=== PATIENT | male | born 1950 | race Caucasian/White ===

== ENCOUNTER 2023-07-15 09:54 | Day surgery (SDC) | payer MEDICARE, OTHER, SELFPAY ==
--- NOTE | 2023-07-15 | PATH_ITS ---
[facility] Accession Number: [id number] No. of containers..03 Tissue . 01 Material submitted: . PART A: colon - DESCENDING POLYP PART B: colon - TRANSVERSE POLYP PART C: colon - TRANSVERSE POLYP #2 . 01 Diagnosis: A. Descending Colon, Polyp: Tubular adenoma. . B. Transverse Colon, Polyp: Tubular adenoma. . C. Transverse Colon, Polyp #2: Tubular adenoma. [facility] 07/20/2023 1416 Local . 01 Electronically signed: . Milla Sheldon MD, Pathologist NPI- [id number] . 01 Gross description: . Part A: DESCENDING POLYP: Received in formalin is multiple fragment(s) of rawls, soft tissue measuring 1.0 x 0.5 x 0.2 cm in aggregate submitted entirely in 1 cassette(s) Part B: TRANSVERSE POLYP: Received in formalin is multiple fragment(s) of rawls, soft tissue measuring 1.0 x 0.5 x 0.1 cm in aggregate submitted entirely in 1 cassette(s) Part C: TRANSVERSE POLYP #2: Received in formalin is 2 fragment(s) of rawls, soft tissue measuring 0.8 x 0.3 x 0.3 cm to 0.7 x 0.4 x 0.2 cm submitted entirely in 1 cassette(s) /AAY 07/17/2023 0150 Local . 01 Pathologist provided ICD-10: D12.4, D12.3 . 01 CPT . 419476, 417769, 517596 Specimen Comment: A courtesy copy of this report has been sent to [phone] Performed at: 01 [facility] [address] [place] [address] [address] [facility] [place], [place], [place] [id number] MD Mayank Sandhu MD Phone: [phone]
[2023-07-15 11:01] VITALS: BP 157/82; PULSE 54; RESP 16; TEMP 36.2; O2SAT 98; BMI 29.5
--- NOTE | 2023-07-15 11:09 | P.HP_ITS ---
History of Present Illness History of Present Illness Date Patient Seen: 07/15/23 Time Patient Seen: 11:09 Chief complaint: Screening Colonoscopy Narrative: Patrick is a 72-year-old man who has a history of colon polyps. He has been having colonoscopies about every 3 years but his last 1 was 4 years ago. He seems to always have some polyps. His father of colon cancer in his 60s. Takes Eliquis for atrial fibrillation but he has held it for the past several days. [facility] Family History (Updated 02/10/17 @ 00:00 by Conversion Provider) Brother Mental health problem Meds Home Medications and Allergies Home Medications Medication Instructions Recorded Confirmed Type CHOLECALCIFEROL (VITAMIN D) 2,000 iu PO Q DAY ##0 02/18/11 History omega 4-jpa-gib-fish oil 1,000 mg 3,000 mg PO BID ##0 11/19/11 07/15/23 History (120 mg-180 mg) capsule (Fish Oil) carvedilol 25 mg tablet (Coreg) 25 mg PO BID #180 tabs 03/25/17 07/15/23 Rx metformin 500 mg tablet 1,000 mg (2 x 500 mg) PO BIDCC 03/25/17 07/15/23 Rx (Glucophage) #360 tabs rivaroxaban 20 mg tablet (Xarelto) 20 mg PO QDAY #90 tabs 05/13/17 07/15/23 Rx atorvastatin 80 mg tablet (Lipitor) 80 mg PO HS #90 tabs 06/04/17 07/15/23 Rx Allergies Allergy/AdvReac Type Severity Reaction Status Date / Time niacin [NIACIN] Allergy Intermediate rash Verified 07/15/23 10:54 rosuvastatin [ROSUVASTATIN] Allergy Intermediate myalgia Verified 07/15/23 10:54 simvastatin [SIMVASTATIN] Allergy Intermediate myalgia Verified 07/15/23 10:54 lisinopril [LISINOPRIL] Allergy Mild rash Verified 07/15/23 10:54 Exam Const Orientation: alert and awake Resp Effort & Inspection: normal respiratory effort Assessment & Plan Assessment and plan (1) History of colonic polyps: Status: None Plan We reviewed the risks and benefits of colonoscopy and he would like to proceed.
[2023-07-15] MEDS: LACTATED RINGERS 1,000 ML 150 ML IV (11:15)
--- NOTE | 2023-07-15 12:51 | PM.OP.EC ---
Operative Date/Time/Diagnoses Date of procedure: 07/15/23 Time of procedure: 12:51 Pre-op diagnosis: History of polyps Post-op diagnosis: same Procedure & Clinicians Study performed: Colonoscopy Same procedure as scheduled: Yes Surgeon: Bairon Pat Procedure Notes Procedure in detail: Surgeon: Bairon Pat MD Anesthesia: Karla Raul DO Procedure: The patient was brought to the endoscopy suite, placed in left lateral decubitus position. The patient was connected to monitoring devices. A time-out was performed. Sedation was administered. Once the patient was adequately sedated, a digital rectal exam was performed and was normal. The scope was then inserted and advanced to the cecum where the appendiceal orifice was identified and photographed. The scope was then slowly withdrawn over greater than 6 minutes. The mucosa was thoroughly inspected. There was a 5 mm polyp in the transverse colon removed with a cold snare. There was a 1 cm polyp in the distal transverse colon removed with a cold snare. There was a 5 mm polyp in the descending colon removed with a cold snare. There was pandiverticulosis greatest in the left colon. The scope was retroflexed in the rectum. No other abnormalities were seen. The scope was straightened and removed. The patient was awakened and brought to recovery. Scope withdrawal time: 11 minutes Sedation time: 32 minutes EBL: 5 mL Findings: 3 polyps as detailed above, the largest was about 1 cm and pandiverticulosis Post-procedure Disposition: PACU
[2023-07-15 12:55] VITALS: BP 100/66; PULSE 63; RESP 18; TEMP 37.2; O2SAT 91
[2023-07-15 13:00] VITALS: BP 94/58; PULSE 62; RESP 11; TEMP 37.1; O2SAT 95
[2023-07-15 13:06] VITALS: BP 104/65; PULSE 57; RESP 15; TEMP 37.1; O2SAT 96
[2023-07-15 13:10] VITALS: BP 108/65; PULSE 56; RESP 16; O2SAT 96
== END 2023-07-15 13:30 | disposition home or self-care (01) ==
PROVIDERS: Family Provider Family Medicine; PCP Family Medicine; Referring Provider Surgery; Visit Provider Surgery
PROC: 0DJD8ZZ Inspection of Lower Intestinal Tract, Via Natural or Artificial Opening Endoscopic (ICD-10-PCS; CPT 45378; principal; 2023-07-15 11:15)
DX: Z12.11 Encounter for screening for malignant neoplasm of colon (principal); Z86.010 Personal history of colon polyps; Z80.0 Family history of malignant neoplasm of digestive organs; I48.91 Unspecified atrial fibrillation; K57.30 Diverticulosis of large intestine without perforation or abscess without bleeding
CPT/HCPCS: 45385; 85610; 93005; J2704

== ENCOUNTER 2024-09-05 02:20 | Emergency (ER) | payer MEDICARE, OTHER, SELFPAY ==
[2024-09-05] VITALS (13 sets, daily range): BP systolic 121–162; BP diastolic 69–81; PULSE 48–61; RESP 15–17; TEMP 36.6–36.8; O2SAT 94–99; BMI 29.0
--- NOTE | 2024-09-05 02:31 | ED.ALCOHOL ---
HPI - Alcohol General Chief Complaint: Toxicology Problem Stated Complaint: N/V Time Seen by Provider: 09/05/24 02:22 History of Present Illness HPI narrative: 74-year-old male with history of atrial fibrillation on Eliquis presents by EMS from home for nausea and vomiting. Patient states that this evening he had several alcoholic beverages and a large amount of [place] food with a female partner. This evening he also decided to take 2x10mg THC gummies. He began to have some nausea and vomiting at home and called 911. Prior to arrival patient was given sublingual zofran. Related Data Home Medications Medication Instructions Recorded Confirmed CHOLECALCIFEROL (VITAMIN D) 2,000 iu PO Q DAY ##0 02/18/11 omega 8-ftz-yrc-fish oil 1,000 mg 3,000 mg PO BID ##0 11/19/11 07/15/23 (120 mg-180 mg) capsule (Fish Oil) Previous Rx's Medication Instructions Recorded carvedilol 25 mg tablet (Coreg) 25 mg PO BID #180 tabs 03/25/17 metformin 500 mg tablet 1,000 mg (2 x 500 mg) PO BIDCC 03/25/17 (Glucophage) #360 tabs rivaroxaban 20 mg tablet (Xarelto) 20 mg PO QDAY #90 tabs 05/13/17 atorvastatin 80 mg tablet (Lipitor) 80 mg PO HS #90 tabs 06/04/17 Allergies Allergy/AdvReac Type Severity Reaction Status Date / Time niacin [NIACIN] Allergy Intermediate rash Verified 07/15/23 10:54 rosuvastatin [ROSUVASTATIN] Allergy Intermediate myalgia Verified 07/15/23 10:54 simvastatin [SIMVASTATIN] Allergy Intermediate myalgia Verified 07/15/23 10:54 lisinopril [LISINOPRIL] Allergy Mild rash Verified 07/15/23 10:54 Patient History Family History (Updated 02/10/17 @ 00:00 by Conversion Provider) Brother Mental health problem Social History household members: none Smoking Status: Former smoker Smoking Status: Former smoker alcohol intake frequency: a few times a week Substance Use Type: does not use Exam Initial Vital Signs Initial Vital Signs: Vital Signs Pulse Rate 54 L 09/05/24 02:26 Respiratory Rate 17 09/05/24 02:26 Pulse Oximetry 94 09/05/24 02:26 Const: Awake, alert, appears intoxicated Cardiac: Bradycardia, irregularly irregular RESP: unlabored, clear bilaterally, no wheezing GI: Soft, nontender, nondistended Skin: Warm, Dry, intact, no rashes Neuro: AO x3, CN II-XII grossly intact, moves all extremities Course Vital Signs Vital signs: Vital Signs - 8 hr 09/05/24 02:26 09/05/24 02:30 09/05/24 02:30 Temperature 97.8 F Pulse Rate 54 L 48 L 52 L Respiratory Rate 17 15 15 Blood Pressure 162/81 H Pulse Oximetry 94 96 95 Oxygen Delivery Method Room Air 09/05/24 03:00 09/05/24 03:30 09/05/24 04:00 Temperature Pulse Rate 55 L 53 L 61 Respiratory Rate 16 15 15 Blood Pressure Pulse Oximetry 97 98 97 Oxygen Delivery Method 09/05/24 04:25 09/05/24 04:25 09/05/24 04:30 Temperature Pulse Rate 54 L 52 L Respiratory Rate 16 15 Blood Pressure 121/69 Pulse Oximetry 99 99 Oxygen Delivery Method MDM - Alcohol MDM Narrative Medical decision making narrative: Nausea and vomiting after alcohol and THC consumption. Patient states that he does not normally do edibles but tonight he had reportedly 20 mg of THC gummies. Patient noted to be in atrial fibrillation on the monitor, he states that he does have a history of AFib and is anticoagulated. He reports improvement in his nausea and vomiting after Zofran administration. Patient reassessed, easily arousable, he states that he feels remarkably better. He was no more nausea and vomiting and he can call for a ride Discharge Plan Departure Patient Disposition: Home Clinical Impression: Alcoholic intoxication Instructions: DI for Nausea -- Adult Activity Restrictions/Additional Instructions: I am glad that you were feeling better. In the future if you are going to drink alcohol and take edibles reduce the amounts to avoid repeat episodes such as this today. Continue all of your normal medications. Follow up with your primary care doctor as needed. Prescriptions: No Action CHOLECALCIFEROL (VITAMIN D) 2,000 iu PO Q DAY Qty: 0 omega 3-yov-tqv-fish oil [Fish Oil] 1,000 MG capsule 3,000 mg PO BID Qty: 0 metformin [Glucophage] 500 MG tablet 1,000 mg PO BIDCC Qty: 360 0RF carvedilol [Coreg] 25 MG tablet 25 mg PO BID Qty: 180 1RF Xarelto 20 MG tablet 20 mg PO QDAY Qty: 90 0RF atorvastatin [Lipitor] 80 MG tablet 80 mg PO HS Qty: 90 0RF Referrals: Carol Leonard MD [Primary Care Provider] - Stand Alone Forms: Patient Portal/API/Survey
--- NOTE | 2024-09-05 06:52 | PC.NURSE ---
Ambulatory with steady gait in room
== END 2024-09-05 06:59 | disposition home or self-care (01) ==
PROVIDERS: Emergency Provider Emergency Medicine; Family Provider Family Medicine; PCP Family Medicine
DX: F10.129 Alcohol abuse with intoxication, unspecified (principal)
CPT/HCPCS: 99281; 99283